=== PATIENT | male | born 1995 | race Caucasian/White ===

== ENCOUNTER 2018-02-19 02:53 | Emergency (ER) | payer SELFPAY, OTHER ==
[2018-02-19 03:51] LABS: ADD MAN DIFF? NO
[2018-02-19] MEDS: METHYLPREDNISOLONE 125 MG INJ IV (03:52)
[2018-02-19] MEDS: SOD CHLORIDE 0.9% 1,000 ML IV (03:52)
[2018-02-19] MEDS: ALBUTEROL 0.5% (NEB) 2.5 MG/0.5 ML AMP INH (03:54)
[2018-02-19] MEDS: IPRATROPIUM (NEB) 0.5 MG/2.5 ML AMP INH (03:54)
[2018-02-19 04:04] LABS: WHITE BLOOD COUNT 18.3 10^3/ul (4.8-10.8)
[2018-02-19 04:04] LABS: ABNORMAL IP MESSAGE 1; BASOPHIL # 0.1 10^3/ul (0.0-0.1); BASOPHILS % 0.5 % (0.0-2.0); EOSINOPHILS # 0.8 10^3/ul (0.0-0.5); EOSINOPHILS % 4.3 % (0.0-7.0); HEMATOCRIT 52.1 % (42.0-52.0); HEMOGLOBIN 17.4 g/dl (14.0-18.0); LYMPHOCYTES # 5.6 10^3/ul (0.8-2.9); LYMPHOCYTES % 30.3 % (18.0-55.0); MEAN CORPUSCULAR HEMOGLOBIN 30.4 pg (29.0-33.0); MEAN CORPUSCULAR HGB CONC 33.4 g/dl (32.0-37.0); MEAN CORPUSCULAR VOLUME 91.1 fl (72.0-104.0); MEAN PLATELET VOLUME 10.7 fl (7.4-10.4); MONOCYTE # 1.2 10^3/ul (0.3-0.9); MONOCYTES % 6.3 % (0.0-13.0); NEUTROPHIL # 10.7 10^3/ul (1.6-7.5); NEUTROPHILS % 58.2 % (30.0-74.0); PLATELET COUNT 291 10^3/UL (140-415); POSITIVE DIFF @See below; RED BLOOD COUNT 5.72 10^6/ul (4.70-6.10); RED CELL DISTRIBUTION WIDTH 12.2 % (11.5-14.5)
[2018-02-19 04:09] LABS: ALANINE AMINOTRANSFERASE 55 IU/L (13-69); ALBUMIN 4.7 g/dl (3.3-4.9); ALBUMIN/GLOBULIN RATIO 1.38; ALKALINE PHOSPHATASE 59 IU/L (42-121); ANION GAP 14 (5-13); ASPARTATE AMINO TRANSFERASE 39 IU/L (15-46); BILIRUBIN,INDIRECT 0.5 mg/dl (0-1.1); BILIRUBIN,TOTAL 0.5 mg/dl (0.2-1.3); BLOOD UREA NITROGEN 12 mg/dl (7-20); CALCIUM 9.8 mg/dl (8.4-10.2); CARBON DIOXIDE 29 mmol/L (21-31); CHLORIDE 102 mmol/L (97-110); CREATININE 0.85 mg/dl (0.61-1.24); Estimated GFR > 60 mL/min (>60); GLUCOSE 100 mg/dl (70-220); POTASSIUM 4.3 mmol/L (3.5-5.1); SODIUM 145 mmol/L (135-144); TOTAL PROTEIN 8.1 g/dl (6.1-8.1)
[2018-02-19] MEDS ORDERED: ONDANSETRON 4 MG INJ IV (06:00)
[2018-02-19] MEDS ORDERED: NACL 0.9% 3 ML SYG IV (06:00)
[2018-02-19] MEDS ORDERED: PANTOPRAZOLE (EC) 40 MG TAB PO (06:00)
[2018-02-19] MEDS ORDERED: HEPARIN 5,000 UNIT/1 ML VIAL SC (06:00)
[2018-02-19] MEDS ORDERED: DOCUSATE SODIUM 100 MG CAP PO (06:00)
[2018-02-19] MEDS ORDERED: ACETAMINOPHEN 325 MG TAB PO (06:00)
[2018-02-19] MEDS ORDERED: BISACODYL (EC) 5 MG TAB PO (06:00)
[2018-02-19] MEDS: LORAZEPAM 2 MG INJ IV (06:04)
[2018-02-19 07:26] LABS: AADO2 Arterial 44.4 mmHg (7.0-24.0); Arterial Blood Gas Oxygen Sat 93.2 mmHG (95.0-98.0); Arterial COHb 1.4 % (0.0-3.0); Arterial Fraction of Oxyhgb 91.5 % (93.0-99.0); Arterial HCO3 22.4 mmol/L (22.0-26.0); Arterial MetHb 0.4 % (0.0-1.5); Arterial pCO2 34.4 mmhg (35-45); MODE ROOM AIR; Site LB
[2018-02-19] MEDS ORDERED: DEXTROSE 5%-0.45% NACL 500 ML BAG IV (07:30)
[2018-02-19] MEDS: SOD CHLORIDE 0.9% 100 ML (07:45)
[2018-02-19] MEDS: IOHEXOL 100 ML (07:45)
[2018-02-19] MEDS: ACETAMINOPHEN 325 MG TAB PO (07:53)
[2018-02-19] MEDS: LEVOFLOXACIN 750MG/D5W (PMX) 150 ML IVPB (07:54)
[2018-02-19] MEDS: MAGNESIUM SULFATE 2 GM/50 ML 50 ML IVPB (07:54)
[2018-02-19 07:55] LABS: HAAIG REFLEX REFLEX FILED
[2018-02-19] MEDS: LEVALBUTEROL (NEB) 1.25 MG/0.5 ML AMP HHN (08:20)
[2018-02-19 08:31] LABS: ETHANOL < 10.0 mg/dl (0-0)
[2018-02-19 08:38] LABS: C-REACTIVE PROTEIN < 0.5 mg/dl (0.0-0.9)
[2018-02-19 09:04] LABS: HEPATITIS B SURFACE ANTIGEN NEGATIVE (NEGATIVE)
[2018-02-19 09:05] LABS: THYROID STIMULATING HORMONE 0.489 MIU/L (0.465-4.680)
[2018-02-19 09:18] LABS: HEMOGLOBIN A1C 5.1 % (0-5.9)
[2018-02-19 09:21] LABS: HEPATITIS B CORE ANTIBODY NEGATIVE (NEGATIVE); HEPATITIS C VIRAL ANTIBODY NEGATIVE (NEGATIVE); HIV 1&2 ANTIBODY NEGATIVE (NEGATIVE)
[2018-02-19 09:22] LABS: HEPATITIS B SURFACE ANTIBODY NEGATIVE (NEGATIVE)
[2018-02-19] MEDS ORDERED: METHYLPREDNISOLONE 125 MG INJ IV (14:00)
[2018-02-19] MEDS ORDERED: METHYLPREDNISOLONE 40 MG INJ IV (14:00)
[2018-02-21 13:12] LABS: ANA SCREEN NEGATIVE (NEGATIVE)
== END 2018-02-19 09:55 | disposition left against medical advice (07) ==
LOC: E/R 09:55 → FTE 02:53 → E/R 09:55
DX: R06.02 Shortness of breath (principal); R09.02 Hypoxemia; F17.210 Nicotine dependence, cigarettes, uncomplicated
CPT/HCPCS: 36415; 36600; 71045; 71275; 80053; 80307; 82803; 83036; 84443; 85025; 85651; 86038; 86140; 86703; 86704; 86706; 86708; 86709; 86803; 87040; 87340; 93005; 93970; 94640; 94644; 94664; 96374; 96375; 99285-25